=== PATIENT | male | born 1990 | race American Indian/Alaskan Native ===

== ENCOUNTER 2021-09-13 23:53 | Inpatient (IN) | payer SELFPAY ==
--- NOTE | 2021-09-14 00:10 | Emergency Department Report ---
ED General Adult HPI - General Chief complaint: Hyperglycemia Stated complaint: ABDOMINAL PAIN/HIGH BLOOD SUGAR Time Seen by Provider: 09/14/21 00:05 Source: EMS Mode of arrival: Stretcher Limitations: No Limitations - History of Present Illness Initial comments: Patient presents by ambulance secondary to elevated blood sugar. He had what he states that he has not been feeling well lately. He has had some epigastric pain and left upper quadrant pain. He has had nausea. There is been no vomiting. He felt short of breath. EMS was called because of the symptoms. EMS found the patient to be normoxic. They found him to have hyperglycemia. Patient had gone to [place]. His blood sugars were running low in the 80-100 range so he was told to stop taking insulin. He states that while in [place], he did not have problems with the sugar. Now that he is returned here, his sugar has spiked. He does not know why. He states that his diet really has not changed. Patient has no history of recent fever or chills. There is no URI symptoms. He has had no dysuria. - Related Data Allergies Allergy/AdvReac Type Severity Reaction Status Date / Time No Known Allergies Allergy Verified 09/14/21 00:06 ED Review of Systems ROS: Stated complaint: ABDOMINAL PAIN/HIGH BLOOD SUGAR Other details as noted in HPI Comment: All other systems reviewed and negative Constitutional: denies: fever Eyes: denies: vision change ENT: denies: throat pain Respiratory: denies: cough Cardiovascular: denies: chest pain Endocrine: denies: unexplained weight loss Gastrointestinal: as per HPI Genitourinary: denies: dysuria Musculoskeletal: denies: back pain Skin: denies: rash Neurological: denies: headache Hematological/Lymphatic: denies: easy bruising ED Past Medical Hx - Past Medical History Previous Medical History?: Yes Hx Diabetes: Yes - Family History Family history: diabetes ED Physical Exam - General Limitations: No Limitations, Other (Pulse ox noted in low. Patient is in no distress. This improved with treatment.) General appearance: alert, in no apparent distress - Head Head exam: Present: atraumatic, normocephalic, normal inspection - Eye Eye exam: Present: normal appearance, EOMI. Absent: scleral icterus - ENT ENT exam: Present: mucous membranes dry, normal external ear exam - Neck Neck exam: Absent: meningismus - Respiratory Respiratory exam: Present: normal lung sounds bilaterally. Absent: respiratory distress - Cardiovascular Cardiovascular Exam: Present: normal rhythm, tachycardia - GI/Abdominal GI/Abdominal exam: Present: soft, tenderness (Mild left upper quadrant). Absent: guarding, rebound - Extremities Exam Extremities exam: Present: normal capillary refill. Absent: pedal edema - Back Exam Back exam: Absent: CVA tenderness (R), CVA tenderness (L) - Neurological Exam Neurological exam: Present: alert, oriented X3, CN II-XII intact, reflexes normal. Absent: motor sensory deficit - Psychiatric Psychiatric exam: Present: normal affect, normal mood - Skin Skin exam: Present: warm, dry ED Course Vital Signs 09/14/21 09/14/21 09/14/21 00:05 00:39 00:40 Temperature 97.6 F Pulse Rate 113 H 112 H Respiratory 18 14 Rate Blood Pressure 134/87 Blood Pressure 129/76 [Left] O2 Sat by Pulse 93 98 98 Oximetry 09/14/21 09/14/21 01:00 01:30 Temperature Pulse Rate 118 H 113 H Respiratory 20 30 H Rate Blood Pressure 144/81 142/76 Blood Pressure [Left] O2 Sat by Pulse 97 96 Oximetry - Reevaluation(s) Reevaluation #1: 09/14/21 00:10 EMS was met upon arrival. IV and labs were ordered. Glucose was noted. Old records reviewed. Reevaluation #2: 09/14/21 01:41 pH is noted. Chemistries are pending. ED Medical Decision Making - Lab Data Result diagrams: 09/14/21 00:44 09/14/21 00:44 Rhythm strip: Sinus tachycardia without ectopy. Monitor observe 10 seconds. - Medical Decision Making Patient presents with abdominal pain and elevated blood sugar. He clinically does not have evidence of hepatitis or pancreatitis. There is no vomiting. He certainly could be suffering from DKA but his labs are still pending at this time. Patient does not have profound leukocytosis suggestive of any obvious infection. He actually has evidence of hemoconcentration that would be consistent with dehydration. IV fluids have been ordered. We will recheck his glucose. Disposition will be made based on electrolytes. Critical Care Time: No Critical care attestation.: If time is entered above; I have spent that time in minutes in the direct care of this critically ill patient, excluding procedure time. ED Disposition Clinical Impression: Left upper quadrant pain Uncontrolled type 1 diabetes mellitus Qualifiers: Glycemic state: with hyperglycemia Qualified Code(s): E10.65 - Type 1 diabetes mellitus with hyperglycemia Disposition: 30 STILL A PATIENT Is pt being admited?: No Condition: Stable Instructions: Diabetes Mellitus Type 2 in Adults (ED)
[2021-09-14] MEDS ORDERED: SODIUM CHLORIDE 0.9% 1000 ML 1,000 ML IV ONE ×2 (00:11→17:58)
[2021-09-14] MEDS ORDERED: INSULIN REGULAR, HUMAN 100 UNITS/1 ML IV ONE (00:11)
[2021-09-14] MEDS ORDERED: fentaNYL 100 MCG/2 ML INJ IV ONE ×2 (00:46→01:45)
[2021-09-14 01:18] LABS: Hematocrit 50.4 % (35.5-45.6); Hemoglobin 16.4 gm/dl (11.8-15.2); Mean Corpuscular HGB Conc 32 % (32-34); Mean Corpuscular Volume 83 fl (84-94); Platelet Count 395 K/mm3 (140-440); Red Blood Count 6.04 M/mm3 (3.65-5.03); Red Cell Distribution Width 17.7 % (13.2-15.2)
[2021-09-14 01:34] LABS: BUN/Creatinine Ratio 16; Blood Urea Nitrogen 21 mg/dL (9-20); Calcium 10.3 mg/dL (8.4-10.2); Hemolysis Index 131
[2021-09-14] MEDS ORDERED: MORPHINE 4 MG/1 ML INJ IV ONE (02:45)
[2021-09-14] MEDS ORDERED: ONDANSETRON 4 MG/2 ML INJ IV ONE (02:45)
[2021-09-14] MEDS ORDERED: PANTOPRAZOLE 40 MG INJ IV ONE (02:45)
[2021-09-14] MEDS ORDERED: ALBUTEROL 2.5 MG/3 ML NEBU IH PRN (02:55)
[2021-09-14] MEDS ORDERED: DEXTROSE 50% IN WATER (25GM) 50 ML SYRINGE IV PRN (02:55)
[2021-09-14] MEDS ORDERED: ONDANSETRON 4 MG/2 ML INJ IV PRN (02:55)
[2021-09-14] MEDS ORDERED: ACETAMINOPHEN 325 MG TAB PO PRN (02:55)
[2021-09-14] MEDS ORDERED: SODIUM CHLORIDE 0.45% 1000 ML 1,000 ML IV SCH (03:00)
--- NOTE | 2021-09-14 03:04 | History and Physical Report ---
History of Present Illness Date of examination: 09/14/21 Date of admission: 09/14/21 Chief complaint: Hyperglycemia History of present illness: 31 years old male with history of diabetes type 1 was brought to the emergency room because of elevated blood sugar. Patient has not been feeling well lately. Patient has had some epigastric pain and left upper quadrant pain. He has had nausea. There is been no vomiting. He felt short of breath. EMS was called because of the symptoms. They found him to have hyperglycemia. In the emergency room, patient is found to have DKA patient blood glucose is 629, bicarb is 15, anion gap 32 potassium 6.6, sodium 126. So going to admit the patient to the critical care unit. We will put the patient on insulin and IV fluid as per DKA protocol and consult critical care evaluation Med rec is not available Past History Past Medical History: diabetes Medications and Allergies Allergies Allergy/AdvReac Type Severity Reaction Status Date / Time No Known Allergies Allergy Verified 09/14/21 00:06 Review of Systems All systems: negative Cardiovascular: shortness of breath Respiratory: shortness of breath Gastrointestinal: abdominal pain, nausea Exam - Constitutional Vitals: Temp Pulse Resp BP Pulse Ox 97.6 F 113 H 31 H 132/84 95 09/14/21 00:05 09/14/21 02:26 09/14/21 02:26 09/14/21 02:26 09/14/21 02:26 General appearance: Present: no acute distress, well-nourished - EENT Eyes: Present: PERRL ENT: hearing intact, clear oral mucosa - Neck Neck: Present: supple, normal ROM - Respiratory Respiratory effort: normal Respiratory: bilateral: diminished - Cardiovascular Heart Sounds: Present: S1 & S2. Absent: rub, click - Extremities Extremities: pulses symmetrical, No edema Peripheral Pulses: within normal limits - Abdominal General gastrointestinal: Present: soft, non-tender, non-distended, normal bowel sounds Male genitourinary: Present: normal - Integumentary Integumentary: Present: clear, warm, dry - Musculoskeletal Musculoskeletal: gait normal, strength equal bilaterally - Psychiatric Psychiatric: appropriate mood/affect, intact judgment & insight - Neurologic Neurologic: CNII-XII intact, moves all extremities Results - Labs CBC & Chem 7: 09/14/21 00:44 09/14/21 00:44 Labs: Laboratory Last Values WBC 11.7 K/mm3 (4.5-11.0) H 09/14/21 00:44 RBC 6.04 M/mm3 (3.65-5.03) H 09/14/21 00:44 Hgb 16.4 gm/dl (11.8-15.2) H 09/14/21 00:44 Hct 50.4 % (35.5-45.6) H 09/14/21 00:44 MCV 83 fl (84-94) L 09/14/21 00:44 MCH 27 pg (28-32) L 09/14/21 00:44 MCHC 32 % (32-34) 09/14/21 00:44 RDW 17.7 % (13.2-15.2) H 09/14/21 00:44 Plt Count 395 K/mm3 (140-440) 09/14/21 00:44 VBG pH 7.214 (7.320-7.420) L 09/14/21 00:44 Sodium 126 mmol/L (137-145) L 09/14/21 00:44 Potassium 6.6 mmol/L (3.6-5.0) H* 09/14/21 00:44 Chloride 86.0 mmol/L (98-107) L 09/14/21 00:44 Carbon Dioxide 15 mmol/L (22-30) L 09/14/21 00:44 Anion Gap 32 mmol/L 09/14/21 00:44 BUN 21 mg/dL (9-20) H 09/14/21 00:44 Creatinine 1.3 mg/dL (0.8-1.3) 09/14/21 00:44 Estimated GFR > 60 ml/min 09/14/21 00:44 BUN/Creatinine Ratio 16 % 09/14/21 00:44 Glucose 629 mg/dL (75-100) H* 09/14/21 00:44 POC Glucose > 600 mg/dL (70-105) H 09/14/21 00:09 Ketones Quantitative Large (Negative) 09/14/21 00:44 Calcium 10.3 mg/dL (8.4-10.2) H 09/14/21 00:44 Assessment and Plan VTE prophylaxis?: Chemical Plan of care discussed with patient/family: Yes - Patient Problems (1) Diabetic ketoacidosis Current Visit: Yes Status: Acute Plan to address problem: Admit the patient to the ICU. Put the patient on insulin drip. Nothing by mouth. Half-normal saline at the rate of 150 cc/h. We will do the serial BMP. Diabetic education. Critical care evaluation. Recheck BMP in the morning (2) Left upper quadrant pain Current Visit: Yes Status: Acute Plan to address problem: Pepcid 20 mg IV every 12 hours. Zofran 4 mg IV every 8 hours as needed. Morphine 2 mg IV every 4 hours as needed. We will monitor the patient closely (3) Uncontrolled type 1 diabetes mellitus Current Visit: Yes Status: Acute Qualifiers: Glycemic state: with hyperglycemia Qualified Code(s): E10.65 - Type 1 diabetes mellitus with hyperglycemia Plan to address problem: Put the patient on insulin drip. Nothing by mouth. Half-normal saline at the rate of 150 cc/h. We will do the serial BMP. Diabetic education. Critical care evaluation. Recheck BMP in the morning (4) Hyperkalemia Current Visit: Yes Status: Acute Plan to address problem: . IV fluid half-normal saline at the rate of 150 cc/h. Insulin drip as per protocol. Calcium gluconate 1 g IV x1 dose. We will monitor the potassium closely we do the serial BMP (5) DVT prophylaxis Current Visit: Yes Status: Acute Plan to address problem: Heparin 5000 units subcu every 8 hours for DVT prophylaxis. Pepcid 20 mg IV every 12 hours for GI prophylaxis. Patient is a full code
[2021-09-14] MEDS: INSULIN REGULAR, HUMAN 100 UNITS in SODIUM CHLORIDE 0.9% 99 ML IV SCH ×3 (03:49→23:03)
[2021-09-14 04:38] LABS: BUN/Creatinine Ratio TNR; Blood Urea Nitrogen TNR mg/dL (9-20)
[2021-09-14 04:39] LABS: Calcium TNR mg/dL (8.4-10.2); Hemolysis Index TNR
[2021-09-14] MEDS: HEPARIN 5,000 UNIT/1 ML VIAL SUB-Q SCH ×3 (05:59→21:24)
[2021-09-14 06:12] LABS: BUN/Creatinine Ratio 18; Blood Urea Nitrogen 24 mg/dL (9-20); Hemolysis Index 175
[2021-09-14] MEDS: HYDROmorphone 1 MG/1 ML INJ IV PRN ×3 (06:12→23:03)
[2021-09-14 07:32] LABS: BUN/Creatinine Ratio 21; Blood Urea Nitrogen 25 mg/dL (9-20); Calcium 9.7 mg/dL (8.4-10.2); Hemolysis Index 126
[2021-09-14] MEDS: MORPHINE 2 MG/1 ML INJ IV PRN ×2 (07:39→12:06)
[2021-09-14] MEDS ORDERED: SODIUM POLYSTYRENE 15 GM/60 ML ORAL LIQD PR SCH (08:00)
[2021-09-14] MEDS: IPRATROPIUM/ALBUTEROL SULFATE 3 ML AMPUL.NEB IH SCH ×3 (08:01→20:15)
[2021-09-14] MEDS ORDERED: SODIUM CHLORIDE 0.9% 1000 ML 1,000 ML ONE ×2 (08:44→11:41)
[2021-09-14 10:06] LABS: BUN/Creatinine Ratio TNR; Blood Urea Nitrogen TNR mg/dL (9-20); Calcium TNR mg/dL (8.4-10.2); Hemolysis Index TNR
[2021-09-14] MEDS: FAMOTIDINE 20 MG/2 ML INJ IV SCH ×2 (10:36→21:24)
[2021-09-14] MEDS ORDERED: POTASSIUM CHLORIDE 10 MEQ in D5W/0.9% NACL 1,000 ML IV SCH (10:45)
[2021-09-14 11:51] LABS: BUN/Creatinine Ratio 19; Blood Urea Nitrogen 23 mg/dL (9-20); Calcium 9.3 mg/dL (8.4-10.2); Hemolysis Index 111
[2021-09-14] MEDS ORDERED: SODIUM POLYSTYRENE 15 GM/60 ML ORAL LIQD PR ONE (12:23)
[2021-09-14] MEDS ORDERED: CALCIUM GLUCONATE 2,000 MG in SODIUM CHLORIDE 0.9% 100 ML IV ONE (12:23)
[2021-09-14] MEDS ORDERED: D5W/0.9% NACL 1,000 ML IV SCH (13:00)
--- NOTE | 2021-09-14 13:32 | Event Note ---
<ORA RAMIREZ - Last Filed: 09/14/21 16:00> Date: 09/14/21 This is a 31-year-old male with insulin-dependent diabetes who presented to the emergency department on 09/14 with hyperglycemia and complaints of epigastric pain and left upper quadrant pain with nausea, shortness of breath via EMS. Work-up in the emergency department revealed lab work consistent with DKA with a blood glucose of 69, bicarb 15, anion gap 32, hyperkalemia 6.6, hyponatremia 126. Patient was admitted to the hospitalist service and initiated DKA protocol with consults to CCM to the ICU. 09/14: transferred to ICU from ED holding. Serial BMPs keep resulting as hemolyzed and lipemic. Given abdominal pain will order lipase, amylase and possible abdominal ultrasound. We will continue patient on insulin drip. As needed hydralazine for hypertension and will give patient another bolus as he only got 2 L in the ED. Past medical history: Diabetes, patient states that he used to take insulin 70/30 until November 2020 when he was told to stop by PCP Past surgical history: None Social history: None Assessment and plan Neuro: Acute pain -As needed analgesic -Reorientation as needed -Avoid delirium -Maintain sleep-wake cycle Cardio: ? HTN -Patient denies history of hypertension -As needed hydralazine -Blood pressure monitoring per protocol Pulmonary: NAD -Supplemental oxygenation as needed -SPO2 monitoring -Pulmonary hygiene GI: MO -Encourage lifestyle and dietary modifications on discharge -Patient complains of left upper quadrant pain and blood work results as hemolyzed and lipemic -Ordered amylase and lipase -Possible abdominal ultrasound if elevated -N.p.o. -Nutrition consult -24 hours +48 mm -BR Senokot -PPI : Hyponatremia, hyperkalemia, hypochloremia, anion gap metabolic acidosis -Trend BMPs -IVF -LR bolus -Unable to treat hyperkalemia as specimen is hemolyzed and lipemic -We will redraw a BMP -Voiding into urinal Endo: DKA -Presented with a blood glucose of 629 -Send UA -Serial BMP -Insulin drip -Hemoglobin A1c 11.8 -CC diet when appropriate -Nutrition consult -Transition to SSI when appropriate -Long-acting insulin when appropriate -Avoid hypoglycemia Heme: Leukocytosis -May be reactive -Trend CBC -Heparin subcu -SCDs to bilateral lower extremities while in bed -Transfuse for hemoglobin less than 7 The high probability of a clinically significant, sudden or life threatening deterioration of the [endo] system(s) required my full and direct attention, intervention and personal management. The aggregate critical care time was [60] minutes. This time is in addition to time spent performing reported procedures but includes the following: [x] Data Review and interpretation [x] Patient assessment and monitoring of vital signs [x] Documentation [x] Medication orders and management <LOUIS VILLAFUERTE - Last Filed: 09/15/21 07:18> I saw and evaluated the patient. Discussed with the nurse practitioner and agree with their findings and plan as documented in this note.
--- NOTE | 2021-09-14 13:51 | Consultation ---
History of Present Illness - Reason for Consult Consult date: 09/14/21 dka Past History Past Medical History: diabetes Medications and Allergies Allergies Allergy/AdvReac Type Severity Reaction Status Date / Time No Known Allergies Allergy Verified 09/14/21 00:06 Active Meds: Active Medications Acetaminophen (Acetaminophen 325 Mg Tab) 650 mg PO Q4H PRN PRN Reason: Pain MILD(1-3)/Fever >100.5/MACKEY Albuterol (Albuterol 2.5 Mg/3 Ml Nebu) 2.5 mg IH Q3HRT PRN PRN Reason: Shortness Of Breath Albuterol/Ipratropium (Ipratropium/Albuterol Sulfate 3 Ml Ampul.Neb) 1 ampul IH Q6HRT [facility] Last Admin: 09/14/21 08:01 Dose: Not Given Documented by: Dextrose (Dextrose 50% In Water (25gm) 50 Ml Syringe) 0 ml IV Q30MIN PRN; Protocol PRN Reason: Hypoglycemia Famotidine (Famotidine 20 Mg/2 Ml Inj) 20 mg IV BID [facility] Last Admin: 09/14/21 10:36 Dose: 20 mg Documented by: Heparin Sodium (Porcine) (Heparin 5,000 Unit/1 Ml Vial) 5,000 unit SUB-Q Q8HR [facility] Last Admin: 09/14/21 05:59 Dose: 5,000 unit Documented by: Hydralazine HCl (Hydralazine 20 Mg/1 Ml Inj) 10 mg IV Q4HR PRN PRN Reason: Hypertension Hydromorphone HCl (Hydromorphone 1 Mg/1 Ml Inj) 0.5 mg IV Q3H PRN PRN Reason: Pain , Severe (7-10) Last Admin: 09/14/21 06:12 Dose: 0.5 mg Documented by: Insulin Human Regular 100 (units/ Sodium Chloride) 100 mls @ 1 mls/hr IV TITR ASHLEY; Protocol Last Titration: 09/14/21 13:10 Dose: 10 units/hr, 10 mls/hr Documented by: Dextrose/Sodium Chloride (D5ns) 1,000 mls @ 125 mls/hr IV DIRECT ASHLEY Sodium Chloride (Nacl 0.9% 1000 Ml) 1,000 mls @ 125 mls/hr IV DIRECT ASHLEY Lactated Ringer's (Lactated Ringers) 1,000 mls @ 999 mls/hr IV BOLUS ONE Stop: 09/14/21 14:19 Morphine Sulfate (Morphine 2 Mg/1 Ml Inj) 2 mg IV Q4H PRN PRN Reason: Pain, Moderate (4-6) Last Admin: 09/14/21 12:06 Dose: 2 mg Documented by: Ondansetron HCl (Ondansetron 4 Mg/2 Ml Inj) 4 mg IV Q8H PRN PRN Reason: Nausea And Vomiting Sodium Chloride (Sodium Chloride 0.9% 10 Ml Flush Syringe) 10 ml IV BID ASHLEY Last Admin: 09/14/21 10:35 Dose: 10 ml Documented by: Sodium Chloride (Sodium Chloride 0.9% 10 Ml Flush Syringe) 10 ml IV PRN PRN PRN Reason: LINE FLUSH Exam - Constitutional Vitals: Temp Pulse Resp BP Pulse Ox 97.6 F 108 H 33 H 162/90 96 09/14/21 00:05 09/14/21 11:30 09/14/21 11:30 09/14/21 11:30 09/14/21 11:30 Results - Labs CBC & Chem 7: 09/14/21 00:44 09/14/21 11:20 Labs: Abnormal lab results 09/14/21 09/14/21 09/14/21 Range/Units 00:09 00:44 00:44 WBC 11.7 H (4.5-11.0) K/mm3 RBC 6.04 H (3.65-5.03) M/mm3 Hgb 16.4 H (11.8-15.2) gm/dl Hct 50.4 H (35.5-45.6) % MCV 83 L (84-94) fl MCH 27 L (28-32) pg RDW 17.7 H (13.2-15.2) % VBG pH (7.320-7.420) Sodium 126 L (137-145) mmol/L Potassium 6.6 H* (3.6-5.0) mmol/L Chloride 86.0 L (98-107) mmol/L Carbon Dioxide 15 L (22-30) mmol/L BUN 21 H (9-20) mg/dL Glucose 629 H* (75-100) mg/dL POC Glucose > 600 H (70-105) mg/dL Calcium 10.3 H (8.4-10.2) mg/dL 09/14/21 09/14/21 09/14/21 Range/Units 00:44 02:34 03:51 WBC (4.5-11.0) K/mm3 RBC (3.65-5.03) M/mm3 Hgb (11.8-15.2) gm/dl Hct (35.5-45.6) % MCV (84-94) fl MCH (28-32) pg RDW (13.2-15.2) % VBG pH 7.214 L (7.320-7.420) Sodium (137-145) mmol/L Potassium 6.0 H (3.6-5.0) mmol/L Chloride (98-107) mmol/L Carbon Dioxide (22-30) mmol/L BUN (9-20) mg/dL Glucose (75-100) mg/dL POC Glucose 510 H (70-105) mg/dL Calcium (8.4-10.2) mg/dL 09/14/21 09/14/21 09/14/21 Range/Units 04:57 05:24 06:58 WBC (4.5-11.0) K/mm3 RBC (3.65-5.03) M/mm3 Hgb (11.8-15.2) gm/dl Hct (35.5-45.6) % MCV (84-94) fl MCH (28-32) pg RDW (13.2-15.2) % VBG pH (7.320-7.420) Sodium 129 L (137-145) mmol/L Potassium 5.7 H (3.6-5.0) mmol/L Chloride 90.5 L (98-107) mmol/L Carbon Dioxide 15 L (22-30) mmol/L BUN 24 H (9-20) mg/dL Glucose 534 H* (75-100) mg/dL POC Glucose 531 H 497 H (70-105) mg/dL Calcium (8.4-10.2) mg/dL 09/14/21 09/14/21 09/14/21 Range/Units 07:02 08:54 11:20 WBC (4.5-11.0) K/mm3 RBC (3.65-5.03) M/mm3 Hgb (11.8-15.2) gm/dl Hct (35.5-45.6) % MCV (84-94) fl MCH (28-32) pg RDW (13.2-15.2) % VBG pH (7.320-7.420) Sodium 130 L 130 L (137-145) mmol/L Potassium 5.9 H 6.2 H* (3.6-5.0) mmol/L Chloride 93.8 L 94.0 L (98-107) mmol/L Carbon Dioxide 13 L 19 L (22-30) mmol/L BUN 25 H 23 H (9-20) mg/dL Glucose 492 H 425 H (75-100) mg/dL POC Glucose 508 H (70-105) mg/dL Calcium (8.4-10.2) mg/dL 09/14/21 09/14/21 Range/Units 11:25 13:15 WBC (4.5-11.0) K/mm3 RBC (3.65-5.03) M/mm3 Hgb (11.8-15.2) gm/dl Hct (35.5-45.6) % MCV (84-94) fl MCH (28-32) pg RDW (13.2-15.2) % VBG pH (7.320-7.420) Sodium (137-145) mmol/L Potassium (3.6-5.0) mmol/L Chloride (98-107) mmol/L Carbon Dioxide (22-30) mmol/L BUN (9-20) mg/dL Glucose (75-100) mg/dL POC Glucose 442 H 326 H (70-105) mg/dL Calcium (8.4-10.2) mg/dL
[2021-09-14 14:08] LABS: Bilirubin,Urine NEG (Negative); Blood,Urine NEG (Negative); Color,Urine Yellow (Yellow); Mucus,Urine FEW /HPF; Urobilinogen,Urine < 2.0 mg/dL (<2.0)
[2021-09-14 14:17] LABS: Chol/HDL Ratio 6.93 %; HDL Cholesterol 29 mg/dL (40-59); LDL Cholesterol,Direct TNR mg/dL (50-130)
[2021-09-14] MEDS ORDERED: LACTATED RINGERS 1,000 ML IV ONE (14:30)
[2021-09-14 14:37] LABS: Alanine Aminotransferase 35 units/L (7-56); Albumin 3.6 g/dL (3.9-5)
[2021-09-14 14:46] LABS: Bilirubin,Direct < 0.2 mg/dL (0-0.2)
[2021-09-14] MEDS: SODIUM CHLORIDE 0.9% 1000 ML 1,000 ML IV SCH (16:36)
[2021-09-14 17:55] LABS: BUN/Creatinine Ratio 22; Blood Urea Nitrogen 22 mg/dL (9-20); Hemolysis Index 37
[2021-09-14] MEDS ORDERED: SODIUM POLYSTYRENE 15 GM/60 ML ORAL LIQD PO ONE (17:59)
[2021-09-14] MEDS: hydrALAZINE 20 MG/1 ML INJ IV PRN (18:31)
[2021-09-14 19:13] LABS: BUN/Creatinine Ratio 18; Blood Urea Nitrogen 18 mg/dL (9-20); Calcium 8.7 mg/dL (8.4-10.2); Hemolysis Index 17
[2021-09-15] MEDS: HYDROmorphone 1 MG/1 ML INJ IV PRN (02:10)
[2021-09-15] MEDS: SODIUM CHLORIDE 0.9% 1000 ML 1,000 ML IV SCH (05:28)
[2021-09-15 05:41] LABS: Basophils % (Auto) 0.1 % (0.0-1.8); Eosinophils # (Auto) 0.1 K/mm3 (0.0-0.4); Eosinophils % (Auto) 0.5 % (0.0-4.3); Lymphocytes # (Auto) 1.6 K/mm3 (1.2-5.4); Lymphocytes % (Auto) 11.3 % (13.4-35.0); Mean Corpuscular HGB Conc 32 % (32-34); Mean Corpuscular Volume 81 fl (84-94); Monocytes % (Auto) 7.4 % (0.0-7.3); Platelet Count 342 K/mm3 (140-440); Red Blood Count 5.79 M/mm3 (3.65-5.03); Red Cell Distribution Width 18.3 % (13.2-15.2)
[2021-09-15 06:18] LABS: BUN/Creatinine Ratio 14
[2021-09-15 06:20] LABS: Alanine Aminotransferase 19 units/L (7-56); Albumin 3.2 g/dL (3.9-5); Blood Urea Nitrogen 14 mg/dL (9-20); Calcium 8.5 mg/dL (8.4-10.2); Hemolysis Index 13
[2021-09-15] MEDS ORDERED: D5W/0.45% NACL/KCL 20 MEQ 20 MEQ/1,000 ML BAG IV SCH (08:00)
[2021-09-15 08:07] LABS: BUN/Creatinine Ratio 14; Blood Urea Nitrogen 13 mg/dL (9-20); Calcium 7.6 mg/dL (8.4-10.2); Hemolysis Index 16
[2021-09-15] MEDS ORDERED: DEXTROSE 50% IN WATER (25GM) 50 ML SYRINGE IV PRN (09:00)
--- NOTE | 2021-09-15 09:24 | Ultrasound Report ---
LIMITED RUQ ABDOMINAL ULTRASOUND INDICATION: elevated lipase. COMPARISON: No relevant prior imaging study available. FINDINGS: Pancreas: The pancreas is obscured by overlying bowel gas. Abdominal Aorta: Obscured. IVC: Obscured. Liver: The liver measures 17.4 cm in length. The liver is enlarged, echogenic and attenuates the ult rasound beam consistent with moderate to severe that he infiltration. No obvious liver lesion is dete cted on ultrasound although the images are limited resolution.. Normal hepatopedal flow in the main p ortal vein. Gallbladder: No significant abnormality. Bile ducts: The common bile duct was not visualized. No obvious biliary dilatation. Right kidney: No significant abnormality visualized. Free fluid: None. Additional Findings: None. IMPRESSION: Limited exam. The pancreas, aorta, IVC and CBD are obscured. Hepatomegaly with diffuse fatty infiltration. Signer Name: Jermain Guillen Jr, MD Signed: 09/15/2021 9:19 AM Workstation Name: [id number]
[2021-09-15] MEDS ORDERED: INSULIN NPH/REGULAR 70/30 INJ SUB-Q SCH ×2 (09:30→17:00)
[2021-09-15] MEDS: FAMOTIDINE 20 MG/2 ML INJ IV SCH ×2 (09:34→22:03)
[2021-09-15] MEDS ORDERED: oxyCODONE 5 MG TAB PO PRN (10:00)
--- NOTE | 2021-09-15 11:01 | Progress Note ---
<ASHLEYORAJoce - Last Filed: 09/15/21 16:37> Assessment and Plan Assessment and plan: This is a 31-year-old male with insulin-dependent diabetes admitted with pancreatitis and DKA Neuro: Acute pain -As needed analgesic -IVP and PO -Reorientation as needed -Avoid delirium -Maintain sleep-wake cycle Cardio: ? HTN -Patient denies history of hypertension -elevated BP readings may be related to pain -As needed hydralazine -Blood pressure monitoring per protocol Pulmonary: NAD -Supplemental oxygenation as needed -SPO2 monitoring -Pulmonary hygiene GI: Pancreatitis, MO, mild protein calorie malnutrition -Encourage lifestyle and dietary modifications on discharge -Patient complains of left upper quadrant pain and blood work resulted as hemolyzed and lipemic -Elevated amylase and lipase -Abd US completed-> hepatomegaly with diffuse fatty infiltration, obscured pancreas, CBD, IVC and aorta with -CC diet -24 hours -535 mL -BR: Senokot -PPI : Metabolic acidosis -Trend BMPs -s/p IVF -Voiding into urinal Endo: DM, s/p DKA -Presented with a blood glucose of 629 -s/p Insulin drip -Hemoglobin A1c 11.8 -CC diet -Nutrition consult -SSI -Long-acting insulin -Avoid hypoglycemia Heme: Leukocytosis (improving) -Trend CBC -Lovenox subq -SCDs to bilateral lower extremities while in bed -Transfuse for hemoglobin less than 7 The high probability of a clinically significant, sudden or life threatening deterioration of the [endo] system(s) required my full and direct attention, intervention and personal management. The aggregate critical care time was [60] minutes. This time is in addition to time spent performing reported procedures but includes the following: [x] Data Review and interpretation [x] Patient assessment and monitoring of vital signs [x] Documentation [x] Medication orders and management Disposition Plan: tranfer to floor Total Time Spent with Patient (Minutes): 60 History Interval history: This is a 31-year-old male with insulin-dependent diabetes who presented to the emergency department on 09/14 with hyperglycemia and complaints of epigastric pain and left upper quadrant pain with nausea, shortness of breath via EMS. Work-up in the emergency department revealed lab work consistent with DKA with a blood glucose of 69, bicarb 15, anion gap 32, hyperkalemia 6.6, hyponatremia 126. Patient was admitted to the hospitalist service and initiated DKA protocol with consults to CCM to the ICU. 09/14: transferred to ICU from ED holding. Serial BMPs keep resulting as hemolyzed and lipemic. Given abdominal pain will order lipase, amylase and possible abdominal ultrasound. We will continue patient on insulin drip. As needed hydralazine for hypertension and will give patient another bolus as he only got 2 L in the ED. 09/15: transitioned to subq insulin and ssi, started on cc diet. will transfer to floor Hospitalist Physical - Constitutional Vitals: Temp Pulse Resp BP Pulse Ox 100.6 F H 126 H 20 119/80 94 09/15/21 07:39 09/15/21 09:00 09/15/21 09:00 09/15/21 09:00 09/15/21 09:00 General appearance: Present: no acute distress, well-nourished - EENT Eyes: Present: PERRL, EOM intact ENT: hearing intact, clear oral mucosa, dentition normal - Neck Neck: Present: normal ROM - Respiratory Respiratory effort: normal Respiratory: bilateral: diminished (B bases) - Cardiovascular Rhythm: regular Heart Sounds: Present: S1 & S2. Absent: systolic murmur, diastolic murmur - Extremities Extremities: no ischemia, pulses intact, pulses symmetrical, No edema, normal temperature, normal color, Full ROM Peripheral Pulses: within normal limits - Abdominal General gastrointestinal: soft, non-tender, non-distended, normal bowel sounds - Integumentary Integumentary: Present: warm, dry - Psychiatric Psychiatric: appropriate mood/affect, cooperative - Neurologic Neurologic: CNII-XII intact, no focal deficits, moves all extremities - Allied Health Allied health notes reviewed: nursing, RT, social work Results - Labs CBC & Chem 7: 09/15/21 Unknown 09/15/21 Unknown Labs: Laboratory Last Values WBC 13.9 K/mm3 (4.5-11.0) H 09/15/21 Unknown RBC 5.79 M/mm3 (3.65-5.03) H 09/15/21 Unknown Hgb 15.0 gm/dl (11.8-15.2) 09/15/21 Unknown Hct 47.0 % (35.5-45.6) H 09/15/21 Unknown MCV 81 fl (84-94) L 09/15/21 Unknown MCH 26 pg (28-32) L 09/15/21 Unknown MCHC 32 % (32-34) 09/15/21 Unknown RDW 18.3 % (13.2-15.2) H 09/15/21 Unknown Plt Count 342 K/mm3 (140-440) 09/15/21 Unknown Lymph % (Auto) 11.3 % (13.4-35.0) L 09/15/21 Unknown [place] % (Auto) 7.4 % (0.0-7.3) H 09/15/21 Unknown Eos % (Auto) 0.5 % (0.0-4.3) 09/15/21 Unknown Baso % (Auto) 0.1 % (0.0-1.8) 09/15/21 Unknown Lymph # (Auto) 1.6 K/mm3 (1.2-5.4) 09/15/21 Unknown [place] # (Auto) 1.0 K/mm3 (0.0-0.8) H 09/15/21 Unknown Eos # (Auto) 0.1 K/mm3 (0.0-0.4) 09/15/21 Unknown Baso # (Auto) 0.0 K/mm3 (0.0-0.1) 09/15/21 Unknown Seg Neutrophils % 80.7 % (40.0-70.0) H 09/15/21 Unknown Seg Neutrophils # 11.2 K/mm3 (1.8-7.7) H 09/15/21 Unknown VBG pH 7.214 (7.320-7.420) L 09/14/21 00:44 Sodium 137 mmol/L (137-145) 09/15/21 Unknown Potassium 4.1 mmol/L (3.6-5.0) 09/15/21 Unknown Chloride 102.9 mmol/L (98-107) 09/15/21 Unknown Carbon Dioxide 20 mmol/L (22-30) L 09/15/21 Unknown Anion Gap 18 mmol/L 09/15/21 Unknown BUN 14 mg/dL (9-20) 09/15/21 Unknown Creatinine 1.0 mg/dL (0.8-1.3) 09/15/21 Unknown Estimated GFR > 60 ml/min 09/15/21 Unknown BUN/Creatinine Ratio 14 % 09/15/21 Unknown Glucose 132 mg/dL (75-100) H 09/15/21 Unknown POC Glucose 163 mg/dL (70-105) H 09/15/21 09:04 Hemoglobin A1c 11.0 % (4-6) H 09/14/21 13:30 Ketones Quantitative Large (Negative) 09/14/21 00:44 Calcium 8.5 mg/dL (8.4-10.2) 09/15/21 Unknown Phosphorus 2.90 mg/dL (2.5-4.5) D 09/15/21 Unknown Magnesium 1.90 mg/dL (1.7-2.3) 09/15/21 Unknown Total Bilirubin 0.50 mg/dL (0.1-1.2) 09/15/21 Unknown Direct Bilirubin < 0.2 mg/dL (0-0.2) 09/14/21 13:30 Indirect Bilirubin 0.2 mg/dL 09/14/21 13:30 AST 20 units/L (5-40) 09/15/21 Unknown ALT 19 units/L (7-56) 09/15/21 Unknown Alkaline Phosphatase 79 units/L (35-129) 09/15/21 Unknown Total Protein 7.7 g/dL (6.3-8.2) 09/15/21 Unknown Albumin 3.2 g/dL (3.9-5) L 09/15/21 Unknown Albumin/Globulin Ratio 0.8 % 09/15/21 Unknown Triglycerides 655 mg/dL (2-149) H 09/14/21 13:30 Cholesterol 201 mg/dL (50-199) H 09/14/21 13:30 LDL Cholesterol Direct TNR 09/14/21 13:30 HDL Cholesterol 29 mg/dL (40-59) L 09/14/21 13:30 Cholesterol/HDL Ratio 6.93 % 09/14/21 13:30 Amylase 410 units/L (27-131) H 09/14/21 13:30 Lipase 658 units/L (13-60) H 09/14/21 13:30 Urine Color Yellow (Yellow) 09/14/21 13:40 Urine Turbidity Clear (Clear) 09/14/21 13:40 Urine pH 5.0 (5.0-7.0) 09/14/21 13:40 Ur Specific [place] 1.036 (1.003-1.030) H 09/14/21 13:40 Urine Protein 100 mg/dl mg/dL (Negative) 09/14/21 13:40 Urine Glucose (UA) >=500 mg/dL (Negative) 09/14/21 13:40 Urine Ketones 80 mg/dL (Negative) 09/14/21 13:40 Urine Blood Neg (Negative) 09/14/21 13:40 Urine Nitrite Neg (Negative) 09/14/21 13:40 Urine Bilirubin Neg (Negative) 09/14/21 13:40 Urine Urobilinogen < 2.0 mg/dL (<2.0) 09/14/21 13:40 Ur Leukocyte Esterase Neg (Negative) 09/14/21 13:40 Urine WBC (Auto) 2.0 /HPF (0.0-6.0) 09/14/21 13:40 Urine RBC (Auto) 1.0 /HPF (0.0-6.0) 09/14/21 13:40 U Epithel Cells (Auto) < 1.0 /HPF (0-13.0) 09/14/21 13:40 Urine Mucus Few /HPF 09/14/21 13:40 Metzger/IV: Voiding Method Urinal Active Medications - Current Medications Current Medications: Generic Name Dose Route Start Last Admin Trade Name Freq PRN Reason Stop Dose Admin Acetaminophen 650 mg 09/14/21 02:55 09/15/21 07:50 Acetaminophen 325 Mg Tab PO 650 mg Q4H PRN Administration Pain MILD(1-3)/Fever >100.5/MACKEY Albuterol 2.5 mg 09/14/21 02:55 Albuterol 2.5 Mg/3 Ml Nebu IH Q3HRT PRN Shortness Of Breath Dextrose 50 ml 09/15/21 09:00 Dextrose 50% In Water (25gm) 50 Ml Syringe IV Q30MIN PRN Hypoglycemia Protocol Enoxaparin Sodium 80 mg 09/15/21 10:00 Enoxaparin 80 Mg/0.8 Ml Inj SUB-Q QDAY ASHLEY Protocol Famotidine 20 mg 09/14/21 10:00 09/15/21 09:34 Famotidine 20 Mg/2 Ml Inj IV 20 mg BID ASHLEY Administration Hydralazine HCl 10 mg 09/14/21 14:18 09/14/21 18:31 Hydralazine 20 Mg/1 Ml Inj IV 10 mg Q4HR PRN Administration Hypertension Hydromorphone HCl 0.5 mg 09/14/21 02:55 09/15/21 02:10 Hydromorphone 1 Mg/1 Ml Inj IV 0.5 mg Q3H PRN Administration Pain , Severe (7-10) Dextrose/Sodium Chloride 1,000 mls @ 125 mls/hr 09/14/21 13:00 09/15/21 07:51 D5ns IV 125 mls/hr DIRECT ASHLEY Administration Sodium Chloride 1,000 mls @ 125 mls/hr 09/14/21 14:30 09/15/21 05:28 Nacl 0.9% 1000 Ml IV 125 mls/hr DIRECT ASHLEY Administration Insulin Human Isoph/Insulin Regular 30 unit 09/15/21 09:30 09/15/21 09:33 Insulin Nph/Regular 70/30 Inj SUB-Q 30 unit QDDIAB ASHLEY Administration Insulin Human Isoph/Insulin Regular 20 unit 09/15/21 17:00 Insulin Nph/Regular 70/30 Inj SUB-Q QPMDIAB ASHLEY Insulin Human Lispro 0 unit 09/15/21 11:30 Insulin Lispro 100 Unit/Ml SUB-Q [facility] Protocol Morphine Sulfate 2 mg 09/14/21 02:55 09/14/21 12:06 Morphine 2 Mg/1 Ml Inj IV 2 mg Q4H PRN Administration Pain, Moderate (4-6) Ondansetron HCl 4 mg 09/14/21 02:55 Ondansetron 4 Mg/2 Ml Inj IV Q8H PRN Nausea And Vomiting Oxycodone HCl 5 mg 09/15/21 10:00 Oxycodone 5 Mg Tab PO Q4H PRN Pain, Moderate (4-6) Oxycodone HCl 10 mg 09/15/21 10:00 Oxycodone 5 Mg Tab PO Q6H PRN Pain, Moderate (4-6) Senna/Docusate Sodium 1 tab 09/15/21 22:00 Sennosides/Docusate Sodium 8.6/50 Mg Tab PO QHS ASHLEY Sodium Chloride 10 ml 09/14/21 10:00 09/15/21 09:34 Sodium Chloride 0.9% 10 Ml Flush Syringe IV 10 ml BID ASHLEY Administration Sodium Chloride 10 ml 09/14/21 02:55 Sodium Chloride 0.9% 10 Ml Flush Syringe IV PRN PRN LINE FLUSH Nutrition/Malnutrition Assess - Dietary Evaluation Nutrition/Malnutrition Findings: Nutrition Notes Start: 09/14/21 15:45 Freq: Status: Active Protocol: Document 09/14/21 15:45 STEF (Rec: 09/14/21 16:18 STEF [id number]) Nutrition Notes 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 Current Diet NPO ( since 09/14 02:56). Labs/Tests 09/14: Na 130, K 6.2, Cl 94.0, CO2 19, BUN 23, Glu 425, TG 655, Chol 201, HDL 29, Amylase 410, Lipase 658, Alb 3.6. Pertinent Medications 09/14: Insulin, others nutritionally unremarkable. Height 5 ft 9 in Weight 148.438 kg [place] Body Weight (kg) 72.72 BMI 48.3 Weight Status Morbidly Obese Subjective/Other Information RD consult for skin risk assessment; < or = 18. Pt shows no signs of concern for skin risk at the time, according to Physical Assessment History notes. Percent of energy/protein needs met: Pt is currently on NPO. Burn Absent Trauma Absent GI Symptoms None Food Allergy No Skin Integrity/Comment Clear, warm, dry. Current % PO Other Minimum of two criteria No #1 Nutrition Diagnosis No nutrition diagnosis at this time Comments: Pt shows no signs of concern for skin risk at the time, according to Physical Assessment History notes. Is patient on ventilator? No Is Patient Ambulatory and/or Out of Bed Yes REE-([facility]-ambulatory/OOB) [ 3171.688 [id number]] Calculation Used for Recommendations [facility] Additional Notes Protein: 1-1.2 g/Kg; 73-88 g/ day (from IBW + critical care) . Fluids: 1 ml/Kcal, or as per MD. Nutrition Intervention Change Diet Order: Continue NPO as per MD; when pertinent, advance to Consistent Carbohydrates Diet. Goal #1 Maintain body weight within +/ -3% of admission BWt during LOS. Goal #2 Reach and maintain acceptable chemistry lab values during LOS. Follow-Up By: 09/21/21 Additional Comments Continue monitoring food tolerance, %PO intake of meals , Hydration, and BM. <LOUIS VILLAFUERTE - Last Filed: 09/16/21 08:20> Assessment and Plan Assessment and plan: I saw and evaluated the patient. Discussed with the nurse practitioner and agree with their findings and plan as documented in this note. Hospitalist Physical - Constitutional Vitals: Temp Pulse Resp BP Pulse Ox 98.2 F 116 H 20 150/91 97 09/16/21 04:43 09/16/21 04:43 09/16/21 05:00 09/16/21 04:43 09/16/21 04:43 Results - Labs CBC & Chem 7: 09/16/21 06:30 09/16/21 06:30 Labs: Laboratory Last Values WBC 12.0 K/mm3 (4.5-11.0) H 09/16/21 06:30 RBC 5.05 M/mm3 (3.65-5.03) H 09/16/21 06:30 Hgb 12.8 gm/dl (11.8-15.2) 09/16/21 06:30 Hct 40.8 % (35.5-45.6) D 09/16/21 06:30 MCV 81 fl (84-94) L 09/16/21 06:30 MCH 25 pg (28-32) L 09/16/21 06:30 MCHC 31 % (32-34) L 09/16/21 06:30 RDW 18.3 % (13.2-15.2) H 09/16/21 06:30 Plt Count 262 K/mm3 (140-440) 09/16/21 06:30 Lymph % (Auto) 11.3 % (13.4-35.0) L 09/15/21 Unknown [place] % (Auto) 7.4 % (0.0-7.3) H 09/15/21 Unknown Eos % (Auto) 0.5 % (0.0-4.3) 09/15/21 Unknown Baso % (Auto) 0.1 % (0.0-1.8) 09/15/21 Unknown Lymph # (Auto) 1.6 K/mm3 (1.2-5.4) 09/15/21 Unknown [place] # (Auto) 1.0 K/mm3 (0.0-0.8) H 09/15/21 Unknown Eos # (Auto) 0.1 K/mm3 (0.0-0.4) 09/15/21 Unknown Baso # (Auto) 0.0 K/mm3 (0.0-0.1) 09/15/21 Unknown Seg Neutrophils % 80.7 % (40.0-70.0) H 09/15/21 Unknown Seg Neutrophils # 11.2 K/mm3 (1.8-7.7) H 09/15/21 Unknown VBG pH 7.214 (7.320-7.420) L 09/14/21 00:44 Sodium 133 mmol/L (137-145) L 09/16/21 06:30 Potassium 3.9 mmol/L (3.6-5.0) 09/16/21 06:30 Chloride 96.5 mmol/L (98-107) L 09/16/21 06:30 Carbon Dioxide 19 mmol/L (22-30) L 09/16/21 06:30 Anion Gap 21 mmol/L 09/16/21 06:30 BUN 10 mg/dL (9-20) 09/16/21 06:30 Creatinine 0.9 mg/dL (0.8-1.3) 09/16/21 06:30 Estimated GFR > 60 ml/min 09/16/21 06:30 BUN/Creatinine Ratio 11 % 09/16/21 06:30 Glucose 309 mg/dL (75-100) H 09/16/21 06:30 POC Glucose 312 mg/dL (70-105) H 09/16/21 07:44 Hemoglobin A1c 11.0 % (4-6) H 09/14/21 13:30 Ketones Quantitative Large (Negative) 09/14/21 00:44 Calcium 8.6 mg/dL (8.4-10.2) 09/16/21 06:30 Phosphorus 2.90 mg/dL (2.5-4.5) D 09/15/21 Unknown Magnesium 1.70 mg/dL (1.7-2.3) 09/16/21 06:30 Total Bilirubin 0.50 mg/dL (0.1-1.2) 09/15/21 Unknown Direct Bilirubin < 0.2 mg/dL (0-0.2) 09/14/21 13:30 Indirect Bilirubin 0.2 mg/dL 09/14/21 13:30 AST 20 units/L (5-40) 09/15/21 Unknown ALT 19 units/L (7-56) 09/15/21 Unknown Alkaline Phosphatase 79 units/L (35-129) 09/15/21 Unknown Total Protein 7.7 g/dL (6.3-8.2) 09/15/21 Unknown Albumin 3.2 g/dL (3.9-5) L 09/15/21 Unknown Albumin/Globulin Ratio 0.8 % 09/15/21 Unknown Triglycerides 655 mg/dL (2-149) H 09/14/21 13:30 Cholesterol 201 mg/dL (50-199) H 09/14/21 13:30 LDL Cholesterol Direct TNR 09/14/21 13:30 HDL Cholesterol 29 mg/dL (40-59) L 09/14/21 13:30 Cholesterol/HDL Ratio 6.93 % 09/14/21 13:30 Amylase 410 units/L (27-131) H 09/14/21 13:30 Lipase 658 units/L (13-60) H 09/14/21 13:30 Urine Color Yellow (Yellow) 09/14/21 13:40 Urine Turbidity Clear (Clear) 09/14/21 13:40 Urine pH 5.0 (5.0-7.0) 09/14/21 13:40 Ur Specific [place] 1.036 (1.003-1.030) H 09/14/21 13:40 Urine Protein 100 mg/dl mg/dL (Negative) 09/14/21 13:40 Urine Glucose (UA) >=500 mg/dL (Negative) 09/14/21 13:40 Urine Ketones 80 mg/dL (Negative) 09/14/21 13:40 Urine Blood Neg (Negative) 09/14/21 13:40 Urine Nitrite Neg (Negative) 09/14/21 13:40 Urine Bilirubin Neg (Negative) 09/14/21 13:40 Urine Urobilinogen < 2.0 mg/dL (<2.0) 09/14/21 13:40 Ur Leukocyte Esterase Neg (Negative) 09/14/21 13:40 Urine WBC (Auto) 2.0 /HPF (0.0-6.0) 09/14/21 13:40 Urine RBC (Auto) 1.0 /HPF (0.0-6.0) 09/14/21 13:40 U Epithel Cells (Auto) < 1.0 /HPF (0-13.0) 09/14/21 13:40 Urine Mucus Few /HPF 09/14/21 13:40 Metzger/IV: Voiding Method Urinal Active Medications - Current Medications Current Medications: Generic Name Dose Route Start Last Admin Trade Name Freq PRN Reason Stop Dose Admin Acetaminophen 650 mg 09/14/21 02:55 09/15/21 07:50 Acetaminophen 325 Mg Tab PO 650 mg Q4H PRN Administration Pain MILD(1-3)/Fever >100.5/MACKEY Albuterol 2.5 mg 09/14/21 02:55 Albuterol 2.5 Mg/3 Ml Nebu IH Q3HRT PRN Shortness Of Breath Dextrose 50 ml 09/15/21 09:00 Dextrose 50% In Water (25gm) 50 Ml Syringe IV Q30MIN PRN Hypoglycemia Protocol Enoxaparin Sodium 80 mg 09/15/21 12:00 09/15/21 11:36 Enoxaparin 80 Mg/0.8 Ml Inj SUB-Q 80 mg QDAY [facility] Administration Protocol Famotidine 20 mg 09/16/21 10:00 Famotidine 20 Mg Tab PO QDAY ASHLEY Hydralazine HCl 10 mg 09/14/21 14:18 09/15/21 22:20 Hydralazine 20 Mg/1 Ml Inj IV 10 mg Q4HR PRN Administration Hypertension Insulin Human Isoph/Insulin Regular 30 unit 09/16/21 08:17 Insulin Nph/Regular 70/30 Inj SUB-Q QPMDIAB ASHLEY Insulin Human Isoph/Insulin Regular 40 unit 09/16/21 08:30 Insulin Nph/Regular 70/30 Inj SUB-Q QDDIAB ASHLEY Insulin Human Lispro 0 unit 09/15/21 11:30 09/15/21 22:03 Insulin Lispro 100 Unit/Ml SUB-Q 6 unit [facility] Administration Protocol Morphine Sulfate 2 mg 09/14/21 02:55 09/15/21 16:16 Morphine 2 Mg/1 Ml Inj IV 2 mg Q4H PRN Administration Pain, Moderate (4-6) Ondansetron HCl 4 mg 09/14/21 02:55 Ondansetron 4 Mg/2 Ml Inj IV Q8H PRN Nausea And Vomiting Oxycodone HCl 5 mg 09/15/21 10:00 09/15/21 11:36 Oxycodone 5 Mg Tab PO 5 mg Q4H PRN Administration Pain, Moderate (4-6) Oxycodone HCl 10 mg 09/15/21 10:00 09/16/21 05:00 Oxycodone 5 Mg Tab PO 10 mg Q6H PRN Administration Pain, Moderate (4-6) Senna 17.2 mg 09/15/21 22:00 09/15/21 22:03 Sennosides 8.6 Mg Tab PO 17.2 mg QHS ASHLEY Administration Sodium Chloride 10 ml 09/14/21 10:00 09/16/21 00:05 Sodium Chloride 0.9% 10 Ml Flush Syringe IV 10 ml BID ASHLEY Administration Sodium Chloride 10 ml 09/14/21 02:55 Sodium Chloride 0.9% 10 Ml Flush Syringe IV PRN PRN LINE FLUSH Nutrition/Malnutrition Assess - Dietary Evaluation Nutrition/Malnutrition Findings: Nutrition Notes Start: 09/14/21 15:45 Freq: Status: Active Protocol: Document 09/15/21 16:51 STEF (Rec: 09/15/21 17:09 STEF [id number]) Nutrition Notes Need for Assessment generated from: Education Initial or Follow up Brief Note Current Diet Consistent Carbohydrates Diet (since B 09/15). Subjective/Other Information RD consult for Nutrition Education. Percent of energy/protein needs met: Prescribed Consistent Carbohydrates Diet provides for energy/protein needs (2, 061 Kcal/91 g) during LOS. #2 Nutrition Diagnosis Food and nutrition-related knowledge deficit Etiology Uncontrolled T1DM. As Evidenced by Signs and Symptoms Current concomitant conditions , abnormal chemistry lab values, MD request for Nutrition Education. Nutrition Intervention Change Diet Order: Continue CC Diet. Education Handouts Provided AND: Diabetes Label Reading Tips, Using Nutrition Labels: Carbohydrate, and MyPlate for Meal Planning. Goal #1 During LOS, provide Pt with nutrition education to foster behavioral changes towards a healthy lifestyle. Goal #2 Maintain body weight within +/ -3% of admission BWt during LOS. Goal #3 Reach and maintain acceptable chemistry lab values during LOS. Follow-Up By: 09/21/21 Additional Comments Continue monitoring food tolerance, %PO intake of meals , Hydration, and BM.
[2021-09-15] MEDS: ENOXAPARIN 80 MG/0.8 ML INJ SUB-Q SCH (11:36)
[2021-09-15] MEDS: INSULIN LISPRO 100 UNIT/ML SUB-Q SCH ×3 (11:36→22:03)
--- NOTE | 2021-09-15 14:07 | Event Note ---
Date: 09/15/21 Gap is closed and patient being transitioned out of the unit. Will sign off.
[2021-09-15] MEDS: MORPHINE 2 MG/1 ML INJ IV PRN (16:16)
[2021-09-15] MEDS: oxyCODONE 5 MG TAB PO PRN (18:41)
[2021-09-15] MEDS ORDERED: SENNOSIDES 8.6 MG TAB PO SCH (22:00)
[2021-09-15] MEDS ORDERED: SENNOSIDES/DOCUSATE SODIUM 8.6/50 MG TAB PO SCH (22:00)
[2021-09-15] MEDS: hydrALAZINE 20 MG/1 ML INJ IV PRN (22:20)
[2021-09-16] MEDS: oxyCODONE 5 MG TAB PO PRN (05:00)
[2021-09-16 07:21] LABS: Hematocrit 40.8 % (35.5-45.6); Hemoglobin 12.8 gm/dl (11.8-15.2); Mean Corpuscular HGB Conc 31 % (32-34); Mean Corpuscular Volume 81 fl (84-94); Platelet Count 262 K/mm3 (140-440); Red Blood Count 5.05 M/mm3 (3.65-5.03); Red Cell Distribution Width 18.3 % (13.2-15.2)
[2021-09-16 07:44] LABS: BUN/Creatinine Ratio 11; Blood Urea Nitrogen 10 mg/dL (9-20); Calcium 8.6 mg/dL (8.4-10.2); Hemolysis Index 10
[2021-09-16] MEDS ORDERED: INSULIN NPH/REGULAR 70/30 INJ SUB-Q SCH ×2 (08:30→17:00)
[2021-09-16] MEDS: INSULIN LISPRO 100 UNIT/ML SUB-Q SCH ×2 (08:31→12:26)
--- NOTE | 2021-09-16 08:52 | Discharge Summary ---
Providers - Providers Date of Admission: 09/14/21 02:55 Date of discharge: 09/16/21 Attending physician: LOUIS VILLAFUERTE MD Primary care physician: GRATED CHEESE [employer]KER Hospitalization Reason for admission: abdominal pain Condition: Stable Hospital course: Interval history: This is a 31-year-old male with insulin-dependent diabetes who presented to the emergency department on 09/14 with hyperglycemia and complaints of epigastric pain and left upper quadrant pain with nausea, shortness of breath via EMS. Work-up in the emergency department revealed lab work consistent with DKA with a blood glucose of 69, bicarb 15, anion gap 32, hyperkalemia 6.6, hyponatremia 126. Patient was admitted to the hospitalist service and initiated DKA protocol with consults to CCM to the ICU. 09/14: transferred to ICU from ED holding. Serial BMPs keep resulting as hemolyzed and lipemic. Given abdominal pain will order lipase, amylase and possible abdominal ultrasound. We will continue patient on insulin drip. As needed hydralazine for hypertension and will give patient another bolus as he only got 2 L in the ED. 09/15: transitioned to subq insulin and ssi, started on cc diet. will transfer to floor 09/16: Patient be discharged today. His pancreatitis has improved. He can tolerate a p.o. diet. DKA is also resolved. Patient will be discharged home on Novolin 70/30 50 units twice daily. He will also be sent home on metformin 1000 mg p.o. twice daily. Diabetic education administered. We will also be sending home patient with glucometer and accompanying supplies. His blood pressure has been elevated this admission. We will discharge him on Zestirotec and Bystolic for blood pressure control. He was advised to follow up with primary care phys lore bowling regarding his hospitalization. Assessment and plan: This is a 31-year-old male with insulin-dependent diabetes admitted with pancreatitis and DKA Neuro: Acute pain 2/2 pancreatitis (resolved) -As needed analgesic -IVP and PO -Reorientation as needed -Avoid delirium -Maintain sleep-wake cycle Cardio: Hypertensive urgency -Patient denies history of hypertension -elevated BP readings may be related to pain -As needed hydralazine -Blood pressure monitoring per protocol Pulmonary: NAD -Supplemental oxygenation as needed -SPO2 monitoring -Pulmonary hygiene GI: Pancreatitis, MO, mild protein calorie malnutrition -Encourage lifestyle and dietary modifications on discharge -Patient complains of left upper quadrant pain and blood work resulted as hemolyzed and lipemic -Elevated amylase and lipase -Abd US completed-> hepatomegaly with diffuse fatty infiltration, obscured pancreas, CBD, IVC and aorta with -CC diet -24 hours -535 mL -BR: Senokot -PPI : Metabolic acidosis -Trend BMPs -s/p IVF -Voiding into urinal Endo: DM, s/p Diabetic ketoacidosis -Presented with a blood glucose of 629 -s/p Insulin drip -Hemoglobin A1c 11.8 -CC diet -Nutrition consult -SSI -Long-acting insulin -Avoid hypoglycemia Heme: Leukocytosis (improving), SIRS POA -Trend CBC -Lovenox subq -SCDs to bilateral lower extremities while in bed -Transfuse for hemoglobin less than 7 Disposition: 01 HOME / SELF CARE / HOMELESS Final Discharge Diagnosis (Prints w/discharge instructions): diabetic ketoacidosis and pancreatitis Time spent for discharge: 35 Core Measure Documentation - Palliative Care Palliative Care/ Comfort Measures: Not Applicable - Core Measures Any of the following diagnoses?: none Exam - Physical Exam Narrative exam: General appearance: Present: no acute distress, well-nourished - EENT Eyes: Present: PERRL, EOM intact ENT: hearing intact, clear oral mucosa, dentition normal - Neck Neck: Present: normal ROM - Respiratory Respiratory effort: normal Respiratory: bilateral: diminished (B bases) - Cardiovascular Rhythm: regular Heart Sounds: Present: S1 & S2. Absent: systolic murmur, diastolic murmur - Extremities Extremities: no ischemia, pulses intact, pulses symmetrical, No edema, normal temperature, normal color, Full ROM Peripheral Pulses: within normal limits - Abdominal General gastrointestinal: soft, non-tender, non-distended, normal bowel sounds - Integumentary Integumentary: Present: warm, dry - Psychiatric Psychiatric: appropriate mood/affect, cooperative - Neurologic Neurologic: CNII-XII intact, no focal deficits, moves all extremities - Allied Health Allied health notes reviewed: nursing, RT, social work - Constitutional Vitals: Temp Pulse Resp BP Pulse Ox 98.2 F 116 H 20 150/91 97 09/16/21 04:43 09/16/21 04:43 09/16/21 05:00 09/16/21 04:43 09/16/21 04:43 Plan Follow up with: PRIMARY CARE, [Primary Care Provider] - 3-5 Days Prescriptions: Nebivolol HCl [Bystolic] 5 mg PO QDAY 30 Days #30 tablet Insulin NPH/Regular [Novolin 70/30] 50 unit SQ BIDDIAB 30 Days #3 vial Lisinopril/Hydrochlorothiazide [Zestoretic 20-25 mg] 1 tab PO QDAY 30 Days #30 tab Other Discharge Orders: Glucometer (Amb) Location: None Selected Glucometer supplies[Amb] Location: None Selected
[2021-09-16] MEDS: ENOXAPARIN 80 MG/0.8 ML INJ SUB-Q SCH (09:38)
[2021-09-16] MEDS ORDERED: FAMOTIDINE 20 MG TAB PO SCH (10:00)
[2021-09-16 13:16] VITALS: BP 157/106
== END 2021-09-16 13:26 | disposition home or self-care (01) | DRG 438 ==
LOC: ED 23:53 → CC1 09-14 02:55 → 3A 09-15 22:40
PROVIDERS: ADMIT Hospitalist; ATTEND Internal Medicine
DX: K85.90 Acute pancreatitis without necrosis or infection, unspecified (principal); E10.10 Type 1 diabetes mellitus with ketoacidosis without coma; R65.10 Systemic inflammatory response syndrome (SIRS) of non-infectious origin without acute organ dysfunction; Z68.42 Body mass index [BMI] 45.0-49.9, adult; E44.1 Mild protein-calorie malnutrition; E10.65 Type 1 diabetes mellitus with hyperglycemia; E87.5 Hyperkalemia; I16.0 Hypertensive urgency
CPT/HCPCS: 36415; 76705; 80048; 80053; 80061; 80076; 81001; 82010; 82150; 82805; 82962; 83036; 83690; 83735; 84100; 84132; 85025; 85027; 94640; G0378; J3490; Q0162; Q0177; Q9967; C9113; J0360; J1170; J1644; J1650; J1815; J2270; J2405; J3010; J7030; J7042; J7120